=== PATIENT | female | born 1975 | race Caucasian/White ===

== ENCOUNTER → 2020-04-07 | Outpatient (CLI) | payer OTHER ==
[~2020-04-07] MED LIST: ALLERGY INJECTIONS INJ; IBUPROFEN800 MG PO; KEFLEX CAP 500500 MG PO; NAPROSYN500 MG PO; NORCO 7.5-3251 EACH PO; PREMARIN CREAM VG; SYMBICORT 160-1 INHA INH; TIZANIDINE HCL4 MG PO; VALTREX 500 MG500 MG PO; [UNRECOGNIZED DRUG - OTHER] TOP; [UNRECOGNIZED DRUG - OTHER] TOP
== END ==
LOC: EXRD 14:55
DX: M79.643 Pain in unspecified hand (principal)
CPT/HCPCS: 73130

== ENCOUNTER → 2020-07-21 | Outpatient (CLI) | payer OTHER | LOC: RAD 16:07 | DX: M54.2 Cervicalgia (principal); M46.86 Other specified inflammatory spondylopathies, lumbar region | CPT/HCPCS: 72040; 72100 ==

== ENCOUNTER → 2021-07-12 | Outpatient (CLI) | payer OTHER | LOC: MRI 13:00 → EMI 13:43 → MRI 13:45 | DX: M51.16 Intervertebral disc disorders with radiculopathy, lumbar region (principal); M54.59 Other low back pain | CPT/HCPCS: 72148 ==